=== PATIENT | male | born 1950 | race Caucasian/White ===

== ENCOUNTER → 2017-10-10 | Outpatient (CLI) | payer OTHER | LOC: M RAD 09:50 | DX: Z96.651 Presence of right artificial knee joint (principal) | CPT/HCPCS: 78315 ==

== ENCOUNTER → 2023-06-07 | Outpatient (CLI) | payer MEDICARE | LOC: M PLAIMG 08:29 | PROVIDERS: ATTEND Orthopaedic Surgery | DX: Z53.9 Procedure and treatment not carried out, unspecified reason (principal) ==